=== PATIENT | male | born 1930 | race Caucasian/White ===

== ENCOUNTER 2018-05-02 17:17 | Inpatient (IN) | payer BC, MEDICARE ==
[2018-05-02 17:59] LABS: BASOPHILS % (AUTO) 1 % (0-3); EOSINOPHILS % (AUTO) 0 % (0-9); HEMATOCRIT 45 % (39-53); HEMOGLOBIN 14.3 gm/dl (13.5-17.7); LYMPHOCYTES % (AUTO) 18.5 % (10-50); MEAN CORPUSCULAR HEMOGLOBIN 29.8 pg (27.0-32.0); MEAN CORPUSCULAR HGB CONC 31.8 gm/dl (32.0-36.0); MEAN CORPUSCULAR VOLUME 94 fL (80-100); MONOCYTES % (AUTO) 5.3 % (0-12); NEUTROPHILS % (AUTO) 75.2 % (37-80)
[2018-05-02 18:07] LABS: INR 0.97 (0.86-1.12)
[2018-05-02 18:16] LABS: ALBUMIN 3.3 gm/dl (3.4-5.0); BILIRUBIN,TOTAL 0.2 mg/dl (0.2-1.0); CALCIUM 9.6 mg/dl (8.5-10.1); CREATININE 1.16 mg/dl (0.80-1.30); TOTAL PROTEIN 7.2 gm/dl (6.4-8.2)
[2018-05-02] MEDS ORDERED: ONDANSETRON HCL 4 MG/2 ML SOL IV PRN ×2 (20:29→20:36)
[2018-05-02] MEDS: SODIUM CHLORIDE 0.9% 1000ML 1,000 ML IV SCH (20:45)
[2018-05-02] MEDS ORDERED: SODIUM CHLORIDE 0.9% 100 ML 100 ML IV ONE (20:58)
[2018-05-02] MEDS ORDERED: PIPERACILLIN/TAZOBACT 3.375 GM PDS IV ONE (20:58)
[2018-05-02] MEDS: PANTOPRAZOLE SODIUM 40 MG/10 ML PDS IV SCH (21:03)
[2018-05-02] MEDS: PRAVASTATIN SODIUM 20 MG TAB PO SCH (21:03)
[2018-05-02] MEDS: PIPERACILLIN/TAZOBACT 3.375 GM 3 GM in SODIUM CHLORIDE 0.9% 100 ML 100 ML IV SCH (21:05)
[2018-05-02] MEDS ORDERED: PATIENT EDUCATION 1 MISC PRN (22:16)
[2018-05-03] MEDS ORDERED: PIPERACILLIN/TAZOBACT 3.375 GM PDS IV ONE ×3 (02:07→14:49)
[2018-05-03] MEDS ORDERED: SODIUM CHLORIDE 0.9% 100 ML 100 ML IV ONE ×4 (02:07→17:42)
[2018-05-03] MEDS: PIPERACILLIN/TAZOBACT 3.375 GM 3 GM in SODIUM CHLORIDE 0.9% 100 ML 100 ML IV SCH ×3 (03:05→15:02)
[2018-05-03] MEDS: LEVOTHYROXINE SODIUM 50 MCG TAB PO SCH (06:35)
[2018-05-03] MEDS: TIOTROPIUM BROMIDE 18 MCG CAP INH SCH (08:24)
[2018-05-03] MEDS: PANTOPRAZOLE SODIUM 40 MG/10 ML PDS IV SCH ×2 (08:31→20:50)
[2018-05-03] MEDS ORDERED: ALBUTEROL NEB SOL 2.5MG/3ML 1 VIAL SOL NEB PRN (08:59)
[2018-05-03] MEDS: CHOLECALCIFEROL 1,000 IU TAB PO SCH (11:14)
[2018-05-03] MEDS: SODIUM CHLORIDE 0.9% 1000ML 1,000 ML IV SCH ×2 (11:16→20:22)
[2018-05-03] MEDS ORDERED: LEVOFLOXACIN 25 MG/ML SOL IV ONE (17:42)
[2018-05-03] MEDS ORDERED: LEVOFLOXACIN 25 MG/ML 500 MG in SODIUM CHLORIDE 0.9% 100 ML 100 ML IV SCH (18:00)
[2018-05-03] MEDS: PRAVASTATIN SODIUM 20 MG TAB PO SCH (20:28)
[2018-05-03] MEDS: METRONIDAZOLE 500 MG (PREMIX) 500 MG/100 ML SOL IV SCH (21:50)
[2018-05-04] MEDS: SODIUM CHLORIDE 0.9% 1000ML 1,000 ML IV SCH (01:06)
[2018-05-04] MEDS: METRONIDAZOLE 500 MG (PREMIX) 500 MG/100 ML SOL IV SCH (06:06)
[2018-05-04] MEDS: LEVOTHYROXINE SODIUM 50 MCG TAB PO SCH (06:09)
[2018-05-04 07:11] LABS: CALCIUM 8.6 mg/dl (8.5-10.1); CREATININE 1.08 mg/dl (0.80-1.30); POTASSIUM 3.5 mMol/L (3.5-5.1)
[2018-05-04 07:18] LABS: BASOPHILS % (AUTO) 1 % (0-3); EOSINOPHILS % (AUTO) 0 % (0-9); HEMATOCRIT 38 % (39-53); HEMOGLOBIN 12.2 gm/dl (13.5-17.7); MEAN CORPUSCULAR HEMOGLOBIN 29.9 pg (27.0-32.0); MEAN CORPUSCULAR HGB CONC 32.4 gm/dl (32.0-36.0); MEAN CORPUSCULAR VOLUME 92 fL (80-100); MONOCYTES % (AUTO) 8.3 % (0-12); NEUTROPHILS % (AUTO) 65.5 % (37-80)
[2018-05-04] MEDS: TIOTROPIUM BROMIDE 18 MCG CAP INH SCH (08:47)
[2018-05-04] MEDS: CHOLECALCIFEROL 1,000 IU TAB PO SCH (08:47)
[2018-05-04] MEDS: METRONIDAZOLE 250 MG TAB PO SCH ×3 (09:32→20:51)
[2018-05-04] MEDS: LEVOFLOXACIN 500 MG TAB PO SCH (09:32)
[2018-05-04] MEDS: PANTOPRAZOLE SODIUM 40 MG ECT PO SCH (09:33)
[2018-05-04] MEDS: PRAVASTATIN SODIUM 20 MG TAB PO SCH (20:51)
[2018-05-04] MEDS: SODIUM CHLORIDE 0.9% FLUSH 10 ML SOL IV SCH (20:51)
[2018-05-04] MEDS ORDERED: TAMSULOSIN HYDROCHLORIDE 0.4 MG CAP PO SCH (21:00)
[2018-05-05] MEDS: SODIUM CHLORIDE 0.9% FLUSH 10 ML SOL IV SCH ×2 (06:36→16:33)
[2018-05-05] MEDS: LEVOTHYROXINE SODIUM 50 MCG TAB PO SCH (06:36)
[2018-05-05 07:39] LABS: CALCIUM 9.1 mg/dl (8.5-10.1); CARBON DIOXIDE 26.8 mEq/L (21-32); CREATININE 1.09 mg/dl (0.80-1.30); POTASSIUM 3.3 mMol/L (3.5-5.1)
[2018-05-05] MEDS: LEVOFLOXACIN 500 MG TAB PO SCH (08:07)
[2018-05-05] MEDS: METRONIDAZOLE 250 MG TAB PO SCH ×2 (08:07→16:22)
[2018-05-05] MEDS: TIOTROPIUM BROMIDE 18 MCG CAP INH SCH (08:08)
[2018-05-05] MEDS: PANTOPRAZOLE SODIUM 40 MG ECT PO SCH (08:08)
[2018-05-05] MEDS: CHOLECALCIFEROL 1,000 IU TAB PO SCH (08:09)
[2018-05-05 08:22] VITALS: BP 120/72; PULSE 96; RESP 22; TEMP 96.2; O2SAT 95
[2018-05-05] MEDS: POTASSIUM CHLORIDE 10 MEQ TER PO SCH ×2 (12:10→12:20)
[2018-05-05 16:10] LABS: BASOPHILS % (AUTO) 1 % (0-3); EOSINOPHILS % (AUTO) 1 % (0-9); HEMATOCRIT 40 % (39-53); HEMOGLOBIN 12.3 gm/dl (13.5-17.7); LYMPHOCYTES % (AUTO) 33.6 % (10-50); MEAN CORPUSCULAR HEMOGLOBIN 29.4 pg (27.0-32.0); MEAN CORPUSCULAR VOLUME 95 fL (80-100); MONOCYTES % (AUTO) 9.6 % (0-12); NEUTROPHILS % (AUTO) 55.3 % (37-80)
[2018-05-05] MEDS ORDERED: POTASSIUM CHLORIDE 10 MEQ TER PO SCH (16:30)
[2018-05-05] MEDS ORDERED: PNEUMOCOCCAL VACCINE 0.5 ML SOL IM ONE (16:40)
== END 2018-05-05 17:50 | disposition home or self-care (01) | DRG 392 ==
LOC: ED 17:17 → ACUTE CARE 20:10 → UNDOADMIN 20:10 → ACUTE CARE 20:30
PROVIDERS: ADMIT Family Medicine; ATTEND Family Medicine
DX: A09 Infectious gastroenteritis and colitis, unspecified (principal); R42 Dizziness and giddiness; W19.XXXA Unspecified fall, initial encounter; R53.1 Weakness; J44.9 Chronic obstructive pulmonary disease, unspecified; K76.9 Liver disease, unspecified; N18.9 Chronic kidney disease, unspecified; R06.02 Shortness of breath; R06.2 Wheezing; R33.9 Retention of urine, unspecified
CPT/HCPCS: 36415; 51798; 70200; 71046; 74177; 74183; 80048; 80053; 82272; 85025; 85610; 90732; 94150; 94664; 94760; 99070; 99222; 99284; J1956; J2405; J2543; Q9967; A9270-GY; A9585; G0008; J3490

== ENCOUNTER 2018-05-28 18:46 | Inpatient (IN) | payer BC ==
[2018-05-28 19:25] LABS: BASOPHILS % (AUTO) 1 % (0-3); EOSINOPHILS % (AUTO) 0 % (0-9); HEMATOCRIT 43 % (39-53); HEMOGLOBIN 13.9 gm/dl (13.5-17.7); LYMPHOCYTES % (AUTO) 20.5 % (10-50); MEAN CORPUSCULAR HEMOGLOBIN 30.4 pg (27.0-32.0); MEAN CORPUSCULAR HGB CONC 32.3 gm/dl (32.0-36.0); MEAN CORPUSCULAR VOLUME 94 fL (80-100); MONOCYTES % (AUTO) 5.2 % (0-12); NEUTROPHILS % (AUTO) 73.6 % (37-80)
[2018-05-28 19:34] LABS: INR 0.97 (0.86-1.12)
[2018-05-28 19:37] LABS: CALCIUM 9.3 mg/dl (8.5-10.1); CREATININE 1.11 mg/dl (0.80-1.30); POTASSIUM 3.9 mMol/L (3.5-5.1)
[2018-05-28] MEDS ORDERED: LORAZEPAM 2 MG/ML SOL IV PRN (20:21)
[2018-05-28] MEDS: PANTOPRAZOLE SODIUM 40 MG/10 ML PDS IV SCH (21:39)
[2018-05-28] MEDS: ENOXAPARIN 40 MG SOL SC SCH (21:39)
[2018-05-28] MEDS: DEXTROSE/SALINE 0.45/KCL 20MEQ 1,000 ML/1,000 ML SOL IV SCH (21:40)
[2018-05-29] MEDS: DEXTROSE/SALINE 0.45/KCL 20MEQ 1,000 ML/1,000 ML SOL IV SCH ×3 (05:48→23:14)
[2018-05-29 07:15] LABS: BASOPHILS % (AUTO) 2 % (0-3); EOSINOPHILS % (AUTO) 0 % (0-9); HEMATOCRIT 37 % (39-53); HEMOGLOBIN 12.2 gm/dl (13.5-17.7); LYMPHOCYTES % (AUTO) 28.1 % (10-50); MEAN CORPUSCULAR HEMOGLOBIN 30.4 pg (27.0-32.0); MEAN CORPUSCULAR HGB CONC 32.8 gm/dl (32.0-36.0); MEAN CORPUSCULAR VOLUME 93 fL (80-100); NEUTROPHILS % (AUTO) 63.3 % (37-80)
[2018-05-29 07:18] LABS: CALCIUM 8.3 mg/dl (8.5-10.1); CARBON DIOXIDE 24.1 mEq/L (21-32); CREATININE 0.93 mg/dl (0.80-1.30)
[2018-05-29] MEDS: ENOXAPARIN 40 MG SOL SC SCH (09:44)
[2018-05-29] MEDS: PANTOPRAZOLE SODIUM 40 MG/10 ML PDS IV SCH (09:44)
[2018-05-29] MEDS: SCOPOLAMINE 1.5MG PATCH TD SCH (11:09)
[2018-05-29] MEDS: ALBUTEROL NEB SOL 2.5MG/3ML 1 VIAL SOL NEB PRN (13:56)
[2018-05-30] MEDS: DEXTROSE/SALINE 0.45/KCL 20MEQ 1,000 ML/1,000 ML SOL IV SCH (08:00)
[2018-05-30] MEDS: PANTOPRAZOLE SODIUM 40 MG/10 ML PDS IV SCH (10:51)
[2018-05-30] MEDS: ENOXAPARIN 40 MG SOL SC SCH (10:51)
[2018-05-30] MEDS: SODIUM CHLORIDE 0.9% FLUSH 10 ML SOL IV PRN ×2 (11:21→13:50)
[2018-05-30] MEDS: ALBUTEROL NEB SOL 2.5MG/3ML 1 VIAL SOL NEB PRN (11:41)
[2018-05-30] MEDS: MORPHINE SULFATE 10 MG/ML SOL IV PRN (13:49)
[2018-05-31] MEDS: SODIUM CHLORIDE 0.9% FLUSH 10 ML SOL IV SCH ×4 (00:36→20:30)
[2018-05-31] MEDS: MORPHINE SULFATE 10 MG/ML SOL IV PRN ×2 (00:36→11:07)
[2018-05-31] MEDS ORDERED: ACETAMINOPHEN 650 MG SUP PR PRN (05:00)
[2018-06-01] MEDS: SODIUM CHLORIDE 0.9% FLUSH 10 ML SOL IV SCH ×3 (04:30→19:50)
[2018-06-01] MEDS: MORPHINE SULFATE 10 MG/ML SOL IV PRN (08:04)
[2018-06-01] MEDS ORDERED: LORAZEPAM 0.5 MG PO PRN (09:23)
[2018-06-01] MEDS ORDERED: MORPHINE SULFATE 20 MG/1 ML SOL PO PRN (09:26)
[2018-06-01] MEDS: SCOPOLAMINE 1.5MG PATCH TD SCH (10:39)
[2018-06-01 18:32] VITALS: O2SAT 93
[2018-06-02 00:42] VITALS: TEMP 98.8
[2018-06-02] MEDS: SODIUM CHLORIDE 0.9% FLUSH 10 ML SOL IV SCH (04:23)
[2018-06-02 08:36] VITALS: BP 130/71; PULSE 80; RESP 26
== END 2018-06-02 13:00 | disposition hospice, inpatient (51) | DRG 66 ==
LOC: ED 18:46 → UNDOADMIN 19:55 → ACUTE CARE 19:55
PROVIDERS: ADMIT Family Medicine; ATTEND Family Medicine
PROC: F02Z0FZ Bathing/Showering Assessment using Assistive, Adaptive, Supportive or Protective Equipment (ICD-10-PCS; principal; 2018-05-29)
PROC: F01L5YZ Range of Motion and Joint Integrity Assessment of Musculoskeletal System - Lower Back / Lower Extremity using Other Equipment (ICD-10-PCS; 2018-05-29)
PROC: F01ZBFZ Bed Mobility Assessment using Assistive, Adaptive, Supportive or Protective Equipment (ICD-10-PCS; 2018-05-29)
DX: I63.9 Cerebral infarction, unspecified (principal); R40.2222 Coma scale, best verbal response, incomprehensible words, at arrival to emergency department; G81.94 Hemiplegia, unspecified affecting left nondominant side; R47.81 Slurred speech; R40.2362 Coma scale, best motor response, obeys commands, at arrival to emergency department; R40.2132 Coma scale, eyes open, to sound, at arrival to emergency department; R29.732 NIHSS score 32
CPT/HCPCS: 36415; 70450; 80048; 85025; 85610; 93005; 94640; 99223; 99291; J1650; J2060; J2270; J7613; A9270-GY